=== PATIENT | male | born 1990 ===

== ENCOUNTER 2023-06-21 05:08 | Inpatient (IN) | payer OTHER ==
[~2023-06-21] VITALS: Ht 165.1 cm; Wt 86.2 kg
[~2023-06-21 05:08] MED LIST: FISH OIL 1,4001 EACH PO; OSTERA TABLET1 EACH PO; PEPCID AC20 MG PO
[2023-06-21] MEDS ORDERED: DEXAMETHASONE SODIUM PHOSPHATE 4 MG/ML VIAL ONE (07:53)
[2023-06-21] MEDS ORDERED: CEFAZOLIN SODIUM 1,000 MG VIAL IV ONE (08:15)
[2023-06-21] MEDS ORDERED: DEXAMETHASONE SODIUM PHOSPHATE 4 MG/ML VIAL IV ONE (08:15)
[2023-06-21] MEDS ORDERED: RINGERS SOLUTION,LACTATED 1,000 ML IV SCH (10:45)
[2023-06-21] MEDS ORDERED: ONDANSETRON HCL 2 MG/ML VIAL IV PRN (10:45)
[2023-06-21] MEDS ORDERED: ENALAPRILAT DIHYDRATE 1.25 MG/ML VIAL IV PRN (10:45)
[2023-06-21] MEDS ORDERED: ACETAMINOPHEN 500 MG GEL..CAP PO SCH (13:00)
[2023-06-21] MEDS ORDERED: TRAMADOL HCL 50 MG TABLET PO SCH (13:00)
== END 2023-06-22 11:51 | disposition home or self-care (01) | DRG 627 ==
LOC: CIR.AMB 05:08 → SURG 10:43 → O/R 10:43 → SURG 12:55
PROVIDERS: ADMIT Otolaryngology; ATTEND Otolaryngology
PROC: 0GTM0ZZ Resection of Left Superior Parathyroid Gland, Open Approach (ICD-10-PCS; principal; 2023-06-21 09:15)
DX: D35.1 Benign neoplasm of parathyroid gland (principal); Z20.822 Contact with and (suspected) exposure to COVID-19